=== PATIENT | female | born 1995 | race Caucasian/White ===

== ENCOUNTER 2017-09-11 12:01 | Emergency (ER) | payer SELFPAY ==
[~2017-09-11] VITALS: Ht 160 cm; Wt 78.0 kg
[~2017-09-11 12:01] MED LIST: KLONOPIN1 MG SL
[2017-09-11 13:52] VITALS: BP 118/64
== END 2017-09-11 13:52 | disposition home or self-care (01) ==
LOC: ED 12:01
DX: J02.0 Streptococcal pharyngitis (principal)
CPT/HCPCS: J0561; J1885; J2930